=== PATIENT | male | born 1945 | race Caucasian/White ===

== ENCOUNTER 2023-07-25 07:39 | Outpatient (REF) | payer MEDICARE, BC, SELFPAY ==
--- NOTE | 2023-07-25 07:56 | EMG_ITS ---
Chief complaint: Chronic, 6 years of burning sensation on bilateral lower legs. Denies any symptoms above the knees. No back pain. Diagnose throat cancer, treated with chemo and radiation, last year. Patient already having symptoms prior to this diagnosis. No history of diabetes, thyroid disorder, or heavy alcohol use. Reason for referral: Evaluate for neuropathy Referred by: Ezekiel ARCHER Procedure done: Bilateral lower extremity NCS/EMG Precautions and/or limitations: None The limb temperature was monitored continuously and remained between 32-36 degrees C during the performance of the NCS. Nerve Conduction Studies Anti Sensory Summary Table ?Stim Site NR Onset (ms) Norm Onset (ms) Peak (ms) Norm Peak (ms) O-P Amp (?V) Norm O-P Amp Site1 Site2 Delta-0 (ms) Dist (cm) Cole (m/s) Norm Cole (m/s) Left Sural Anti Sensory (Lat Mall) Calf NR <4.0 >5.0 Calf Lat Mall 14.0 Right Sural Anti Sensory (Lat Mall) Calf NR <4.0 >5.0 Calf Lat Mall 14.0 Motor Summary Table ?Stim Site NR Onset (ms) Norm Onset (ms) O-P Amp (mV) Norm O-P Amp iAmp (mV) Amp (1st) (%) Site1 Site2 Delta-0 (ms) Dist (cm) Cole (m/s) Norm Cole (m/s) Right Peroneal Motor (Ext Dig Brev) Ankle NR <4.0 >2.5 Ankle Ext Dig Brev 0.0 B Fib NR B Fib Ankle 0.0 >40 Poplt NR Poplt B Fib 0.0 >40 Left Peroneal TA Motor (Tib Ant) Fib Head ? 6.6 <4.2 2.0 2.0 100.0 Fib Head Tib Ant 6.6 0.0 Poplit ? 7.1 <5.7 2.9 3.1 145.0 Poplit Fib Head 0.5 6.0 120 >40.5 Right Peroneal TA Motor (Tib Ant) Fib Head ? 7.0 <4.2 1.9 3.0 100.0 Fib Head Tib Ant 7.0 0.0 Poplit ? 7.4 <5.7 1.7 2.8 89.5 Poplit Fib Head 0.4 5.0 125 >40.5 Left Tibial Motor (Abd Willis Brev) Ankle NR <5 >2.5 Ankle Abd Willis Brev 0.0 Knee NR Knee Ankle 0.0 >40 Right Tibial Motor (Abd Willis Brev) Ankle ? 6.9 <5 0.2 >2.5 0.2 100.0 Ankle Abd Willis Brev 6.9 0.0 Knee ? 22.7 0.0 0.2 Knee Ankle 15.8 43.0 27 >40 EMG ?Side Muscle Nerve Root Ins Act Fibs Psw Amp Dur Poly Recrt Int Pat Comment Right AbdHallucis MedPlantar S1-2 Nml Nml Nml Nml Nml 0 Nml Complete Right AntTibialis Dp Br Peron L4-5 Nml Nml Nml Nml Nml 0 Nml Complete Right PostTibialis Tibial L5, S1 Nml Nml Nml Nml Nml 0 Nml Complete Right MedGastroc Tibial S1-2 Nml Nml Nml Nml Nml 0 Nml Complete Right VastusMed Femoral L2-4 Nml Nml Nml Nml Nml 0 Nml Complete Left AbdHallucis MedPlantar S1-2 Incr 1+ 1+ Nml Nml 0 Nml Complete Left AntTibialis Dp Br Peron L4-5 Nml Nml Nml Nml Nml 0 Nml Complete Left PostTibialis Tibial L5, S1 Incr 1+ 1+ Nml Nml 0 Nml Complete Left MedGastroc Tibial S1-2 Incr 1+ 1+ Nml Nml 0 Nml Complete Left VastusMed Femoral L2-4 Nml Nml Nml Nml Nml 0 Nml Complete Paraspinal EMG ?Side Muscle Nerve Root Ins Act Fibs Psw Comment Right Lumbar Upper Rami Nml Nml Nml Right Lumbar Mid Rami Nml Nml Nml Right Lumbar Lower Rami Nml Nml Nml Left Lumbar Upper Rami Nml Nml Nml Left Lumbar Mid Rami Nml Nml Nml Left Lumbar Lower Rami Nml Nml Nml FINDINGS: Right peroneal nerve, recording at EDB muscle, did not show any responses. When recording at TA muscle, showed prolonged distal latency and small amplitudes, without slowing of conduction velocity across fibular neck. Left peroneal nerve, recording at TA muscle, also showed prolonged distal latency, small amplitudes, without slowing of conduction velocity across the fibular neck. Right tibial nerve showed prolonged distal latency, small amplitudes and slow conduction velocity. Left tibial nerve showed no response. Bilateral sural nerves showed no responses. Concentric needle EMG was performed in selected muscles of the bilateral lower extremity and lumbar paraspinals. Study revealed Signs of electric abnormalities as shown in the table below. Left medial gastrocnemius, posterior tibialis, abductor hallucis muscles showed increased insertional activity, PSWs and fibrillations. No denervation seen on lumbar paraspinals. IMPRESSION: 1. This is an abnormal study. 2. 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 Thank you for your kind referral. Elizabeth Romano MD, RUSLAN Board Certified, [place] [employer] and [employer] (ABPMR) Board Certified, [place] [employer] Electrodiagnostic [employer] (ABEM) CODIN [id number] x 2 MTDD
== END 2023-07-25 07:40 | disposition home or self-care (01) ==
LOC: HO.NEURO 07:39
PROVIDERS: PCP Student in an Organized Health Care Education/Training Program; Visit Provider Physician Assistant
DX: G62.0 Drug-induced polyneuropathy (principal)
CPT/HCPCS: 95886; 95909

== ENCOUNTER → 2023-07-25 07:56 | Outpatient (BNV) | payer MEDICARE, BC, SELFPAY | PROVIDERS: PCP Student in an Organized Health Care Education/Training Program; Visit Provider Physical Medicine & Rehabilitation | DX: G62.89 Other specified polyneuropathies (principal); R20.2 Paresthesia of skin; M79.604 Pain in right leg; M79.605 Pain in left leg | CPT/HCPCS: 95886; 95909 ==